=== PATIENT | male | born 1945 | race Caucasian/White ===

== ENCOUNTER 2021-04-09 18:36 | Inpatient (IN) | payer MEDICARE, SELFPAY ==
[2021-04-09] VITALS (57 sets, daily range): BP systolic 99–179; BP diastolic 69–153; PULSE 104–172; RESP 14–32; TEMP 37.6; O2SAT 60–99; BMI 18.8
--- NOTE | 2021-04-09 18:54 | ECG_ITS ---
[facility] Test Date: 2021-04-09 Pat Name: Chriss Chen Department: Room: Gender: Male Clinical Research Monitor: : 1945 Requested By: Chris Joseph Order Number: [id number] Reading MD: REYNOLD VILLATORO Measurements Intervals [place] Rate: 137 P: [place]: QRS: 57 QRSD: 84 T: 59 QT: 269 QTc: 406 Interpretive Statements ATRIAL FLUTTER/TACHYCARDIA WITH RAPID VENTRICULAR RESPONSE WITH ABERRANT CONDUCTION OR VENTRICULAR PREMATURE COMPLEXES ABNORMAL RHYTHM ECG No previous ECG available for comparison Electronically Signed On 04-09-2021 22:56:55 CDT by REYNOLD VILLATORO [id number] f
--- NOTE | 2021-04-09 18:54 | XRR_ITS ---
PROCEDURE INFORMATION: Exam: XR Chest Exam date and time: 04/09/2021 6:54 PM Age: 75 years old Clinical indication: Shortness of breath; Sternal or substernal pain; Additional info: Cp TECHNIQUE: Imaging protocol: XR of the chest. Views: 1 view. COMPARISON: No relevant prior studies available. FINDINGS: Tubes, catheters and devices: There is a right IJ port with tip in the right atrium. Lungs: The lungs are hyperinflated. There is ill-defined ground-glass opacity in the right lung base and peribronchial thickening concerning for mild pneumonitis and volume loss. Ill-defined nodular density beneath the minor fissure in the right lung measuring about 2 cm in greatest dimension is also noted and may reflect a true pulmonary nodule or more focal area of pneumonitis. Pulmonary vascularity is within normal limits. Pleural spaces: Unremarkable. No pleural effusion. No pneumothorax. Heart/Mediastinum: There is no pneumo mediastinum. Vasculature: There is a probable esophageal stent beginning at the level of the clavicular heads and continuing distally ending about 4 cm above the diaphragm. Diaphragm: There is nonspecific elevation of the right hemidiaphragm. Bones/joints: No acute abnormality. XR/XR chest 1V portable [id number] IMPRESSION: 1. There is ill-defined ground-glass opacity in the right lung base and peribronchial thickening concerning for mild pneumonitis and volume loss. 2. Ill-defined nodular density beneath the minor fissure in the right lung measuring about 2 cm in greatest dimension is also noted and may reflect a true pulmonary nodule or more focal area of pneumonitis. Chest CT may be helpful for further evaluation. Radiation Dose CTDIVOL = (mGy): DLP = (mGy-cm)
--- NOTE | 2021-04-09 18:57 | W.ED.CHESTPA ---
HPI - Chest Pain General: Chief Complaint: Upper Respiratory Infection Stated Complaint: SOB/ CP/ TACHYCARDIC Time Seen by Provider: 04/09/21 18:39 Source: patient and EMS Mode of arrival: EMS Limitations: no limitations History of Present Illness: HPI narrative: 75-year-old male has a history of A. fib states he has had a history of lung issues as well. States that over the last weeks he has been having some chest pain palpitations and shortness of breath. He does have a history of atrial fib which he takes Cardizem and warfarin for. States that tonight he started is having increasing palpitations and slight pain. Some mild shortness of breath he is not requiring any oxygen here he has had a cough he states it is chronic in nature. Denies any vomiting or diarrhea. Denies any radiation or worsening improving factors to his pain. He states he had a low-grade fever he also has a history of lung cancer in the past. Associated symptoms: Reports dyspnea and palpitations; Deny abdominal pain, fever(s), nausea or vomiting Review of Systems Const: Denies: fever(s), chills, body aches or change in appetite Eyes: Denies: blurry vision or eye discomfort ENMT: Denies: throat pain or dental pain Card: Reports: chest pain, palpitations and irregular heart rhythm Resp: Reports: dyspnea and non-productive cough GI: Denies: abdominal pain, nausea, vomiting or diarrhea : Denies: dysuria Musc: Denies: neck pain or back pain Skin/Breast: Denies: rash Neuro: Denies: headache(s) Psych: Denies: depression Levon/Lymph: Denies: easy bruising All/Imm: Denies: urticaria Physical Exam Const: COMMON NORMALS: no acute distress, patient oriented x3 and healthy appearing HENMT: COMMON NORMALS: normocephalic and atraumatic HEAD & SCALP: normocephalic and atraumatic Eye: COMMON NORMALS: Equal, round and reactive pupils present and EOMs intact bilaterally PUPIL: Yes Equal, round and reactive pupils present Neck/C-Spine: COMMON NORMALS: full ROM and supple Chest: COMMONS NORMALS: normal inspection of the chest and normal palpation of entire chest wall Resp: COMMON NORMALS: normal respiratory effort, No retractions, No use of accessory muscles and clear to auscultation bilaterally AUSCULTATION: clear to auscultation bilaterally Cardio: COMMON NORMALS: No murmurs present (Cardio) RATE: tachycardic RHYTHM: abnormal rhythm irregularly irregular GI: COMMON NORMALS: Normal to inspection, nondistended, normoactive bowel sounds present, Soft to palpation, non-tender and no masses PALPATION: Yes Soft to palpation Extremity: COMMON NORMALS: normal to inspection and full ROM Neuro: COMMON NORMALS: patient oriented x3, moves all extremities and no focal motor deficits Psych: COMMON NORMALS: mental status grossly normal, Normal thought process present and cooperative THOUGHT PROCESS: Normal thought process present Skin: COMMON NORMALS: no rashes or lesions noted and no wounds GENERAL SKIN EXAM: no rashes or lesions noted Course Vital Signs: Vital signs: Vital Signs Temperature 99.7 F H 04/09/21 18:57 Pulse Rate 118 H 04/09/21 22:15 Respiratory Rate 28 H 04/09/21 22:15 Blood Pressure 127/83 04/09/21 22:15 Pulse Oximetry 86 L 04/09/21 22:15 MDM - Chest Pain MDM Narrative: Medical decision making narrative: Patient presents here with A. fib with RVR along with a pneumonia. Patient here is improving on a Cardizem drip spoke to the hospitalist will admit to cardiac stepdown. Patient given IV antibiotics. Lab Data: Labs: Lab Results 04/09/21 04/09/21 04/09/21 19:00 19:00 19:00 WBC 8.1 10^3/uL 10^3/ uL (4.0-10.0) RBC 5.37 10^6/uL H 10 ^6/uL (4.1-5.3) Hgb 12.9 g/dL g/dL (11.7-16.6) Hct 42.1 % % (42.0-52.0) MCV 78.4 fl L fl (80-94) MCH 24.0 pg L pg (28.0-34.0) MCHC 30.6 g/dL g/dL (30.0-36.0) RDW 14.0 % % (12.1-15.1) Plt Count 449 10^3/cmm H 10 ^3/cmm (130-400) MPV 8.5 fL fL (7.4-10.4) Neut % (Auto) 80.6 % % Lymph % (Auto) 8.3 % % [place] % (Auto) 10.1 % % Eos % (Auto) 0.1 % % Baso % (Auto) 0.2 % % Neut # (Auto) 6.51 10^3/uL 10^3 /uL (1.8-7.7) Lymph # (Auto) 0.7 10^3/uL L 10^ 3/uL (0.8-4.8) [place] # (Auto) 0.8 10^3/uL 10^3/ uL (0.2-0.9) Eos # (Auto) 0.0 10^3/uL 10^3/ uL (0.0-0.8) Baso # (Auto) 0.0 10^3/uL 10^3/ uL (0.0-0.1) Nucleated RBC % (a uto) 0 % % Nucleated RBCs # 0.0 /100WBC /100W BC PT 24.60 SECONDS H S ECONDS (12.1-14.9) INR 2.17 H (0.8-1.2) Sodium 130 mmol/L L mmol /L (136-145) Potassium 4.7 mmol/L mmol/L (3.5-5.1) Chloride 90 mmol/L L mmol/ L (98-107) Carbon Dioxide 28 mmol/L mmol/L (22-29) Anion Gap 16.7 (5-19) BUN 9 mg/dL mg/dL (8-23) Creatinine 0.5 mg/dL L mg/dL (0.7-1.2) GFR Calculation Not Reportable Glucose 80 mg/dL mg/dL (65-115) Calculated Osmolal ity 268 mOsm/kg L mOs m/kg (285-295) Lactate Calcium 9.1 mg/dL mg/dL (8.5-10.5) Total Bilirubin 0.4 mg/dL mg/dL (0.15-1.2) AST 27 U/L U/L (0-40) ALT 39 U/L U/L (0-41) Alkaline Phosphata se 150 IU/L H IU/L (40-130) Troponin T Baselin e Troponin T 120 Min [place] Troponin T NT-Pro-B Natriuret Pep 1495 pg/mL H pg/m L (0-450) Total Protein 6.4 g/dL L g/dL (6.6-8.7) Albumin 3.5 g/dL g/dL (3.5-5.2) Globulin 2.9 g/dL g/dL (1.3-4.6) SARS-CoV-2 Ag (Rap id) 04/09/21 04/09/21 04/09/21 19:00 19:43 19:43 WBC RBC Hgb Hct MCV MCH MCHC RDW Plt Count MPV Neut % (Auto) Lymph % (Auto) [place] % (Auto) Eos % (Auto) Baso % (Auto) Neut # (Auto) Lymph # (Auto) [place] # (Auto) Eos # (Auto) Baso # (Auto) Nucleated RBC % (a uto) Nucleated RBCs # PT INR Sodium Potassium Chloride Carbon Dioxide Anion Gap BUN Creatinine GFR Calculation Glucose Calculated Osmolal ity Lactate 1.0 mmol/L mmol/L (0.5-2.2) Calcium Total Bilirubin AST ALT Alkaline Phosphata se Troponin T Baselin e 18 ng/L H ng/L (0-15) Troponin T 120 Min [place] Troponin T NT-Pro-B Natriuret Pep Total Protein Albumin Globulin SARS-CoV-2 Ag (Rap id) Negative (Negative) 04/09/21 21:11 WBC RBC Hgb Hct MCV MCH MCHC RDW Plt Count MPV Neut % (Auto) Lymph % (Auto) [place] % (Auto) Eos % (Auto) Baso % (Auto) Neut # (Auto) Lymph # (Auto) [place] # (Auto) Eos # (Auto) Baso # (Auto) Nucleated RBC % (a uto) Nucleated RBCs # PT INR Sodium Potassium Chloride Carbon Dioxide Anion Gap BUN Creatinine GFR Calculation Glucose Calculated Osmolal ity Lactate Calcium Total Bilirubin AST ALT Alkaline Phosphata se Troponin T Baselin e Troponin T 120 Min [place] 17.54 ng/L H ng/L (0-15) [place] Troponin T -0.46 ABS# L ABS# (0-10) NT-Pro-B Natriuret Pep Total Protein Albumin Globulin SARS-CoV-2 Ag (Rap id) Imaging Data^: CT Chest: Attestation: I personally reviewed and interpreted this imaging study as follows: Radiologist's impression: [facility] [address] [address] Scan Report Signed Patient: Chriss Chen Unit #: [id number] : 1945 Age/Sex: 75 / M ADM Date: 04/09/21 Loc: ER Room/Bed: Attending Dr: Ordering Provider/Ordering MD: Chris Joseph MD Date of Service: 04/09/21 Procedure(s): CT angio chest PE protcl [id number] Accession Number(s): [id number] Report Number: [id number] PROCEDURE INFORMATION: Exam: CTA Chest With Contrast Exam date and time: 04/09/2021 7:41 PM Age: 75 years old Clinical indication: Cough and fever and shortness of breath; Prior surgery; Surgery type: Port, aaa; Additional info: SOB TECHNIQUE: Imaging protocol: Computed tomographic angiography of the chest with contrast. 3D rendering (Not supervised by radiologist): MIP and/or 3D reconstructed images were created by the technologist. Radiation optimization: All CT scans at this facility use at least one of these dose optimization techniques: automated exposure control; mA and/or kV adjustment per patient size (includes targeted exams where dose is matched to clinical indication); or iterative reconstruction. Contrast material: OMNI 350; Contrast volume: 73 ml; Contrast route: INTRAVENOUS (IV); COMPARISON: CR (CHEST, ) 04/09/2021 7:02 PM RADIATION DOSE METRICS: Total DLP (mGy-cm): 543.82 FINDINGS: Tubes, catheters and devices: There is an esophageal stent. This portion of the mass measures 4.7 x 6.6 cm in size at the level of the distal stent. There is a right IJ port with tip in the superior vena cava. Pulmonary arteries: There is no pulmonary embolus. Aorta: There is 4.2 cm aneurysmal dilatation of the ascending thoracic aorta without dissection or mural hematoma. Trachea: Large mass extends into the right paratracheal region and is also extending into the posterior trachea measuring 3.8 x 5.9 cm. There is mild narrowing of the posterior trachea less than 20%. Lungs: Multiple tree-in-bud opacities are noted in the lungs compatible with pneumonitis. Volume loss and peribronchial thickening with patchy mucous plugging is noted in the right middle lobe and right lower lobe. Mild right basilar infiltrate versus atelectasis is noted. Pleural spaces: There is a moderate sized right pleural effusion. Heart: The heart is enlarged. There is a small pericardial fluid collection present. There is reflux of contrast into the hepatic veins compatible with probable right heart failure. Mediastinal space: The distal stent is occluded by soft tissue mass involving the distal esophagus and fundus of the stomach. There is infiltration of the esophageal mass throughout the mediastinum extending into the kiersten. Lymph nodes: There is a 1.2 cm short axis right and left hilar lymph node. Soft tissue mass versus adenopathy is also noted at the superior aspect of the stent with short segment of complete occlusion of the proximal esophagus at the top of the stent image 79. Adrenal glands: There is multilobulated benign adenomatous enlargement of the adrenal glands. Stomach and bowel: Extensive soft tissue density is noted surrounding the esophagus/esophageal stent compatible with extensive esophageal carcinoma beginning at the thoracic inlet and continuing distally to the gastroesophageal junction. The wall of the posterior fundus of the stomach measures 2.8 cm. Bones/joints: There is adenopathy versus contiguous extension of the mass into the thoracic inlet. Both lytic and sclerotic bony changes are noted compatible with metastatic disease especially at T1 and T2. No acute fracture. Soft tissues: Unremarkable. Other findings: There is fluid/secretions in the lumen of the esophageal stent. CT/CT angio chest PE protcl [id number] IMPRESSION: 1. There is no pulmonary embolus. 2. Extensive esophageal neoplasm circumferentially surrounding the entire esophageal stent with short segment occlusion of the stent proximally at the thoracic inlet. This large mass is extending into the right paratracheal soft tissues and resulting in approximately 20% narrowing of the posterior trachea. 3. Obstruction of the distal esophageal stent/gastroesophageal junction with large mass extending into the fundus of the stomach. 4. Mild tree-in-bud pneumonitis diffusely in the lungs with more focal peribronchial thickening and mucous plugging in the right middle lobe and right lower lobe that may reflect aspiration pneumonitis. There is a moderate sized right pleural effusion. Radiation Dose CTDIVOL = (mGy): DLP = 543.82 (mGy-cm) Dictated By: Alisia Prather Signed By: Alisia Prather Signed Date/Time: 04/09/212113 DD/ 40 EKG Data^: EKG 1: Attestation: I personally reviewed and interpreted this EKG as follows: EKG interpretation date: 04/09/21 EKG interpretation time: 18:48 Interpretation: atrial flutter hr [address] or t wave abnormalities qr 84 qtc 349 Critical Care Time Critical Care Time: Critical Care Time: Yes Total Critical Care Time: 35 Attestation: The high probability of a clinically significant, sudden or life threatening deterioration of the patient's [] system(s) required my full and direct attention, intervention and personal management. The critical care time is as shown. This time is in addition to time spent performing any reported procedures but includes the following: [x] Data and vital sign review and interpretation [x] Patient assessment, examination and intervention [x] Documentation [x] Medication orders and management Discharge Plan Discharge Patient Disposition: Admitted As Inpatient Admit Provider: Catarina Harley Clinical Impression: Atrial fibrillation with RVR, Pneumonia Condition: Stable Discharge Diet: Advance as tolerated Discharge Activity: Resume usual activity Coding Level of Care Code ED Orderly for Chg Fwd Exam Comprehensive
[2021-04-09] MEDS: sodium chloride 0.9% 500 ML 999 ML IV (19:08)
[2021-04-09 19:12] LABS: Basophils % 0.2 %; Eosinophils % 0.1 %; Hematocrit 42.1 % (42.0-52.0); Hemoglobin 12.9 g/dL (11.7-16.6); Lymphocytes # 0.7 10^3/uL (0.8-4.8); Lymphocytes % 8.3 %; Mean Corpuscular HGB Conc 30.6 g/dL (30.0-36.0); Mean Corpuscular Volume 78.4 fl (80-94); Mean Platelet Volume 8.5 fL (7.4-10.4); Monocytes # 0.8 10^3/uL (0.2-0.9); Monocytes % 10.1 %; Neutrophils # 6.51 10^3/uL (1.8-7.7); Neutrophils % 80.6 %; Nucleated Red Blood Cells % 0 %; Platelet Count 449 10^3/cmm (130-400); Red Blood Count 5.37 10^6/uL (4.1-5.3); White Blood Count 8.1 10^3/uL (4.0-10.0)
[2021-04-09] MEDS: acetaminophen 650 mg/20.3 mL UDC PO (19:16)
[2021-04-09 19:22] LABS: INR 2.17 (0.8-1.2)
[2021-04-09 19:38] LABS: Troponin(5th) Baseline 18 ng/L (0-15)
[2021-04-09 19:39] LABS: Alanine Aminotransferase 39 U/L (0-41); Albumin Level 3.5 g/dL (3.5-5.2); Alkaline Phosphatase 150 IU/L (40-130); Anion Gap 16.7 (5-19); Aspartate Amino Transferase 27 U/L (0-40); Blood Urea Nitrogen 9 mg/dL (8-23); Calcium 9.1 mg/dL (8.5-10.5); Carbon Dioxide 28 mmol/L (22-29); Chloride 90 mmol/L (98-107); Globulin 2.9 g/dL (1.3-4.6); Glucose 80 mg/dL (65-115); NT Pro B Type Natriuretic Pept 1495 pg/mL (0-450); Osmolality Calculated 268 mOsm/kg (285-295); Potassium 4.7 mmol/L (3.5-5.1); Sodium 130 mmol/L (136-145); Total Bilirubin 0.4 mg/dL (0.15-1.2); Total Protein 6.4 g/dL (6.6-8.7)
--- NOTE | 2021-04-09 19:41 | CTR_ITS ---
PROCEDURE INFORMATION: Exam: CTA Chest With Contrast Exam date and time: 04/09/2021 7:41 PM Age: 75 years old Clinical indication: Cough and fever and shortness of breath; Prior surgery; Surgery type: Port, aaa; Additional info: SOB TECHNIQUE: Imaging protocol: Computed tomographic angiography of the chest with contrast. 3D rendering (Not supervised by radiologist): MIP and/or 3D reconstructed images were created by the technologist. Radiation optimization: All CT scans at this facility use at least one of these dose optimization techniques: automated exposure control; mA and/or kV adjustment per patient size (includes targeted exams where dose is matched to clinical indication); or iterative reconstruction. Contrast material: OMNI 350; Contrast volume: 73 ml; Contrast route: INTRAVENOUS (IV); COMPARISON: CR (CHEST, ) 04/09/2021 7:02 PM RADIATION DOSE METRICS: Total DLP (mGy-cm): 543.82 FINDINGS: Tubes, catheters and devices: There is an esophageal stent. This portion of the mass measures 4.7 x 6.6 cm in size at the level of the distal stent. There is a right IJ port with tip in the superior vena cava. Pulmonary arteries: There is no pulmonary embolus. Aorta: There is 4.2 cm aneurysmal dilatation of the ascending thoracic aorta without dissection or mural hematoma. Trachea: Large mass extends into the right paratracheal region and is also extending into the posterior trachea measuring 3.8 x 5.9 cm. There is mild narrowing of the posterior trachea less than 20%. Lungs: Multiple tree-in-bud opacities are noted in the lungs compatible with pneumonitis. Volume loss and peribronchial thickening with patchy mucous plugging is noted in the right middle lobe and right lower lobe. Mild right basilar infiltrate versus atelectasis is noted. Pleural spaces: There is a moderate sized right pleural effusion. Heart: The heart is enlarged. There is a small pericardial fluid collection present. There is reflux of contrast into the hepatic veins compatible with probable right heart failure. Mediastinal space: The distal stent is occluded by soft tissue mass involving the distal esophagus and fundus of the stomach. There is infiltration of the esophageal mass throughout the mediastinum extending into the kiersten. Lymph nodes: There is a 1.2 cm short axis right and left hilar lymph node. Soft tissue mass versus adenopathy is also noted at the superior aspect of the stent with short segment of complete occlusion of the proximal esophagus at the top of the stent image 79. Adrenal glands: There is multilobulated benign adenomatous enlargement of the adrenal glands. Stomach and bowel: Extensive soft tissue density is noted surrounding the esophagus/esophageal stent compatible with extensive esophageal carcinoma beginning at the thoracic inlet and continuing distally to the gastroesophageal junction. The wall of the posterior fundus of the stomach measures 2.8 cm. Bones/joints: There is adenopathy versus contiguous extension of the mass into the thoracic inlet. Both lytic and sclerotic bony changes are noted compatible with metastatic disease especially at T1 and T2. No acute fracture. Soft tissues: Unremarkable. Other findings: There is fluid/secretions in the lumen of the esophageal stent. CT/CT angio chest PE protcl [id number] IMPRESSION: 1. There is no pulmonary embolus. 2. Extensive esophageal neoplasm circumferentially surrounding the entire esophageal stent with short segment occlusion of the stent proximally at the thoracic inlet. This large mass is extending into the right paratracheal soft tissues and resulting in approximately 20% narrowing of the posterior trachea. 3. Obstruction of the distal esophageal stent/gastroesophageal junction with large mass extending into the fundus of the stomach. 4. Mild tree-in-bud pneumonitis diffusely in the lungs with more focal peribronchial thickening and mucous plugging in the right middle lobe and right lower lobe that may reflect aspiration pneumonitis. There is a moderate sized right pleural effusion. Radiation Dose CTDIVOL = (mGy): DLP = 543.82 (mGy-cm)
[2021-04-09 20:12] LABS: SARS Covid-2 Antigen Negative (Negative)
[2021-04-09] MEDS: iohexol 350 mg/mL 100 mL Btl IV (20:18)
[2021-04-09] MEDS: cefTRIAXone 1,000 MG in sodium chloride 0.9% (plus) 50 ML 100 MG IV (22:05)
[2021-04-09] MEDS: sodium chloride 0.9% 1,000 ML 999 ML IV (22:10)
[2021-04-09 22:11] LABS: Troponin 5 2HR 17.54 ng/L (0-15); Troponin 5 2HR Delta -0.46 ABS# (0-10)
[2021-04-10] VITALS (18 sets, daily range): BP systolic 109–141; BP diastolic 66–99; PULSE 74–124; RESP 16–28; TEMP 36.6–36.7; O2SAT 94–100
[2021-04-10] MEDS: azithromycin 500 MG in sodium chloride 0.9% 250 ML 250 MG IV
--- NOTE | 2021-04-10 00:54 | ECG_ITS ---
[facility] Test Date: 2021-04-10 Pat Name: Chriss Cehn Department: Room: 112 Gender: Male Checker/Stocker: : 1945 Requested By: Chris Joseph Order Number: [id number] Reading MD: REYNOLD VILLATORO Measurements Intervals [place] Rate: 103 P: [place]: QRS: 64 QRSD: 94 T: 75 QT: 328 QTc: 431 Interpretive Statements ATRIAL FIBRILLATION WITH RAPID VENTRICULAR RESPONSE ABNORMAL RHYTHM ECG Compared to ECG 04/09/2021 18:48:22 Atrial flutter no longer present Ventricular premature complex(es) no longer present Electronically Signed On 04-11-2021 0:12:39 CDT by REYNOLD VILLATORO [email or web address].[employer]/store/OM/[id number]
--- NOTE | 2021-04-10 01:05 | PC.NURSE ---
Addendum entered by Shilpa Clements RN 04/10/21 02:07: Ordered to try pills crushed in applesauce. Original Note: Patient says he has had a sore throat and because of that has had difficulty swallowing. He hasn't taken his PO medications at home in 2 days because of it. He takes PO Warfarin and PO Cardizem at home. Dr. Harley notified.
--- NOTE | 2021-04-10 03:24 | PC.NURSE ---
Dr. Harley notified of cardizem running at 15 and heart rate maintaining 110s-120s.
[2021-04-10] MEDS: metoprolol tartrate 1 mg/1 mL SDV 5 mL 5 MG IVP ×2 (04:28→08:10)
[2021-04-10] MEDS: metroNIDAZOLE IV 500 MG/100 ML PREMIX 100 MG IV ×2 (04:28→15:14)
[2021-04-10] MEDS: enoxaparin 40 mg/0.4 mL Syringe SUBCUT (04:28)
[2021-04-10] MEDS: famotidine 20 mg/2 mL INJ IVP ×2 (04:28→15:14)
--- NOTE | 2021-04-10 05:30 | PC.NURSE ---
Ordered to not give patient any PO medications.
--- NOTE | 2021-04-10 07:17 | PM.HP ---
Providers/Chief Complaint Admitting Physician: Catarina Harley MD Chief Complaint: SOB/ CP/ TACHYCARDIC History of Present Illness Chriss Chen is a 75 year old male with a past medical history of esophageal cancer, status post chemoradiation in 2019, he is to follow-up with Dr. Balderrama at [facility] until August 2020, then discontinued follow-up as his truck broke down and states he had no means of getting to [place]. Additionally carries a history of atrial fibrillation for which he is currently on Cardizem, warfarin. He presents today with c/o central chest pain, progressive dysphagia and food sticking in upper chest which he states that has been going on for a week. Currently only able to swallow liquids. I suspect this may have been going on much longer given his overall deconditioned state. He has not been able to take any of his medications as pills are hard to swallow. He has reported more episodes of coughing with attempted swallow. On evaluation he was found to be in A. fib with RVR with heart rate in the 160s upon admission, started on Cardizem drip, currently running at 15 mg an hour. Heart rate is currently better controlled at [address]pm[address] without acute [address]-T wave changes. Serial troponin delta is negative at 2 and 6-hour. CTA of the chest shows extensive esophageal neoplasm affecting both the upper and lower esophagus, old esophageal stent in place, and signs of pneumonitis. He also has a large right-sided pleural effusion. He denies any fever. Not vaccinated for COVID-19. He appears to have poor social support, does not have any family around, lives by himself, has been eating frozen dinners only for the past 6 months or so. He is noted to have desquamating shallow ulceration on his tongue, states this is not painful. Review of Systems General: Reports: 10 or more systems reviewed and unremarkable except in HPI and below Const: Denies: fever(s), chills or body aches Eyes: Denies: change in vision, blurry vision or photophobia ENMT: Reports: throat pain and odynophagia; Denies: enlarged tonsils or nasal congestion Card: Reports: chest pain; Denies: palpitations, irregular heart rhythm, edema, swelling of feet/ankles, lightheadedness, pre-syncope, dyspnea on exertion or orthopnea Resp: Denies: dyspnea, productive cough, non-productive cough, wheezing, stridor, pain on inspiration, change in phlegm color, hemoptysis or chest congestion GI: Denies: abdominal pain, nausea, vomiting, hematemesis, coffee ground emesis, dysphagia, heartburn, diarrhea, constipation, GI cramping, change in stool character, hematochezia or melena : Denies: flank pain, dysuria, urinary frequency, urinary urgency, urinary hesitancy or hematuria Musc: Denies: neck pain, back pain, extremity pain, joint swelling, joint warmth or deformity Neuro: Denies: headache(s), numbness in extremities, weakness in extremities, sensory changes, difficulty walking, frequent falls, dizziness, vertigo, behavioral changes, Slurred speech present or seizure-like activity Psych: Denies: anxiety, depression, suicidal ideation or homicidal ideation Endo: Denies: polyuria, polydipsia, tired all the time, cold intolerance or hot flashes Levon/Lymph: Denies: easy bruising or easy bleeding Medications/Allergies Home Medications Medication Instructions Recorded Confirmed Last Taken Type baclofen 10 mg PO BID PRN 04/09/21 04/10/21 Unknown History diltiazem HCl 240 mg PO DAILY 04/09/21 04/10/21 2 Days Ago History ~04/07/21 omeprazole 20 mg PO DAILY 04/09/21 04/10/21 2 Days Ago History ~04/07/21 warfarin 6 mg PO DAILY 04/09/21 04/10/21 2 Days Ago History ~04/07/21 iron 325 mg PO DAILY 04/10/21 04/10/21 2 Days Ago History ~04/08/21 ondansetron HCl [Zofran] 4 mg PO Q6H PRN 04/10/21 04/10/21 Unknown History Allergies Allergy/AdvReac Type Severity Reaction Status Date / Time Penicillins Allergy ALGY-Rash Verified 04/09/21 18:57 PFSH Acute PFSH: Medical History (Updated 04/10/21 @ 07:28 by Catarina Harley MD) Atrial fibrillation with RVR Chronic anticoagulation Esophageal cancer Migrated esophageal stent Vitals/I&O/Wt Last Vital Signs Temp 98 F 04/10/21 04:00 Pulse 83 04/10/21 05:31 Resp 28 H 04/10/21 04:00 BP 128/87 04/10/21 05:31 Pulse Ox 94 04/10/21 04:00 04/09/21 04/10/21 04/10/21 22:59 06:59 14:59 Intake Total 2280.167 / 2280.167 92.75 / 92.75 Output Total 675 / 675 Balance 1605.167 / 1605.167 92.75 / 92.75 Weight last 48 hrs Weight 55.157 kg Weight 56.245 kg Physical Exam Narrative: EXAM NARRATIVE: General: No acute distress, AO x3, elderly chronically frail appearing man HEENT: PERRLA, pupils bilaterally equal and reactive, pallors not present Chest: Coarse crackles to auscultation right infra axillary and mammary areas CVS: S1-S2 regular, no murmurs, no tachycardia, no gallops, no rubs Abdomen: Soft, nontender, no organomegaly, bowel sounds present Neuro: No focal deficits, no facial deformity, AO x3, power 5/5 in all limbs Extremities: No swelling edema cyanosis or clubbing Data : 04/09/21 19:00 04/09/21 19:00 Micro: Microbiology 04/09/21 19:30 Blood Culture - Preliminary Blood SPECIMEN COLLECTED 04/09/21 19:43 Blood Culture - Preliminary Blood SPECIMEN COLLECTED Attestation for Other Data: I personally reviewed and interpreted the following: Other data: Laboratory Results WBC 8.1 10^3/uL (4.0-10.0) 04/09/21 19:00 RBC 5.37 10^6/uL (4.1-5.3) H 04/09/21 19:00 Hgb 12.9 g/dL (11.7-16.6) 04/09/21 19:00 Hct 42.1 % (42.0-52.0) 04/09/21 19:00 MCV 78.4 fl (80-94) L 04/09/21 19:00 MCH 24.0 pg (28.0-34.0) L 04/09/21 19:00 MCHC 30.6 g/dL (30.0-36.0) 04/09/21 19:00 RDW 14.0 % (12.1-15.1) 04/09/21 19:00 Plt Count 449 10^3/cmm (130-400) H 04/09/21 19:00 MPV 8.5 fL (7.4-10.4) 04/09/21 19:00 Neut % (Auto) 80.6 % 04/09/21 19:00 Lymph % (Auto) 8.3 % 04/09/21 19:00 Bland % (Auto) 10.1 % 04/09/21 19:00 Eos % (Auto) 0.1 % 04/09/21 19:00 Baso % (Auto) 0.2 % 04/09/21 19:00 Neut # (Auto) 6.51 10^3/uL (1.8-7.7) 04/09/21 19:00 Lymph # (Auto) 0.7 10^3/uL (0.8-4.8) L 04/09/21 19:00 Bland # (Auto) 0.8 10^3/uL (0.2-0.9) 04/09/21 19:00 Eos # (Auto) 0.0 10^3/uL (0.0-0.8) 04/09/21 19:00 Baso # (Auto) 0.0 10^3/uL (0.0-0.1) 04/09/21 19:00 Nucleated RBC % (auto) 0 % 04/09/21 19:00 Nucleated RBCs # 0.0 /100WBC 04/09/21 19:00 PT 24.60 SECONDS (12.1-14.9) H 04/09/21 19:00 INR 2.17 (0.8-1.2) H 04/09/21 19:00 Sodium 130 mmol/L (136-145) L 04/09/21 19:00 Potassium 4.7 mmol/L (3.5-5.1) 04/09/21 19:00 Chloride 90 mmol/L (98-107) L 04/09/21 19:00 Carbon Dioxide 28 mmol/L (22-29) 04/09/21 19:00 Anion Gap 16.7 (5-19) 04/09/21 19:00 BUN 9 mg/dL (8-23) 04/09/21 19:00 Creatinine 0.5 mg/dL (0.7-1.2) L 04/09/21 19:00 GFR Calculation Not Reportable 04/09/21 19:00 Glucose 80 mg/dL (65-115) 04/09/21 19:00 Calculated Osmolality 268 mOsm/kg (285-295) L 04/09/21 19:00 Lactate 1.0 mmol/L (0.5-2.2) 04/09/21 19:43 Calcium 9.1 mg/dL (8.5-10.5) 04/09/21 19:00 Total Bilirubin 0.4 mg/dL (0.15-1.2) 04/09/21 19:00 AST 27 U/L (0-40) 04/09/21 19:00 ALT 39 U/L (0-41) 04/09/21 19:00 Alkaline Phosphatase 150 IU/L (40-130) H 04/09/21 19:00 Troponin T Baseline 18 ng/L (0-15) H 04/09/21 19:00 Troponin T 120 Minute 17.54 ng/L (0-15) H 04/09/21 21:11 Delta Troponin T -0.46 ABS# (0-10) L 04/09/21 21:11 Troponin T Hi Sens 6Hr 17.60 ng/L (0-15) H 04/10/21 01:01 Troponin T Hi Sens 6Hr Delta -0.40 ng/L (0-12) L 04/10/21 01:01 NT-Pro-B Natriuret Pep 1495 pg/mL (0-450) H 04/09/21 19:00 Total Protein 6.4 g/dL (6.6-8.7) L 04/09/21 19:00 Albumin 3.5 g/dL (3.5-5.2) 04/09/21 19:00 Globulin 2.9 g/dL (1.3-4.6) 04/09/21 19:00 SARS-CoV-2 Ag (Rapid) Negative (Negative) 04/09/21 19:43 Impressions Chest X-Ray 04/09/21 18:54 IMPRESSION: 1. There is ill-defined ground-glass opacity in the right lung base and peribronchial thickening concerning for mild pneumonitis and volume loss. 2. Ill-defined nodular density beneath the minor fissure in the right lung measuring about 2 cm in greatest dimension is also noted and may reflect a true pulmonary nodule or more focal area of pneumonitis. Chest CT may be helpful for further evaluation. Radiation Dose CTDIVOL = (mGy): DLP = (mGy-cm) Chest CTA 04/09/21 19:41 IMPRESSION: 1. There is no pulmonary embolus. 2. Extensive esophageal neoplasm circumferentially surrounding the entire esophageal stent with short segment occlusion of the stent proximally at the thoracic inlet. This large mass is extending into the right paratracheal soft tissues and resulting in approximately 20% narrowing of the posterior trachea. 3. Obstruction of the distal esophageal stent/gastroesophageal junction with large mass extending into the fundus of the stomach. 4. Mild tree-in-bud pneumonitis diffusely in the lungs with more focal peribronchial thickening and mucous plugging in the right middle lobe and right lower lobe that may reflect aspiration pneumonitis. There is a moderate sized right pleural effusion. Radiation Dose CTDIVOL = (mGy): DLP = 543.82 (mGy-cm) A&P Assessment and plan (1) Atrial fibrillation with RVR: Initially heart rate 160s upon presentation, started on Cardizem drip, currently going at 15 mg/h, heart rate better controlled between 110 to 120 bpm. Additionally added 5 mg IV metoprolol every 4 hours and attempt to titrate down Cardizem drip. Patient currently unable to swallow any pills, will obtain swallow eval prior to attempting pur?ed or dysphagia diet to ensure safety. INR currently adequate at 2.17, however discontinued anticoagulation due to high risk of bleeding from extensive esophageal neoplasm. Discussed with patient and he feels comfortable with this approach. Status: Acute (2) Pneumonia: Most likely to be aspiration pneumonia given patient's history and findings on CAT scan. Start treatment with ceftriaxone 1 g IV every 24 and Flagyl 500 mg IV every 12 hours. Obtain sputum culture and Gram stain Moderate-sized right pleural effusion which may be parapneumonic. Status: Acute (3) Esophageal cancer: History of esophageal cancer, treated with chemoradiation in 2019. Details currently not available. Followed with Dr. Wallace ZIMMER from [facility]. Has not followed up since August of this year. CTA today and notes extensive esophageal neoplasm surrounding the known esophageal stent and occlusion of the stent proximally at the inlet, correlating with patient's symptoms of dysphagia. There is paratracheal extension into the soft tissues and also obstruction of the distal esophageal stent with large mass extending into the fundus. Extensively discussed with the patient his goals of care. Initially patient had stated that he would like to decide whether he would like to proceed with a more hospice/comfort care approach versus seek palliative treatment. Eventually he decided this morning that he would like to go for palliative treatment. A palliative approach at this time would most likely involve fulguration of the mass and possible esophageal restenting, and or placement of feeding PEG/PEJ as patient currently unable to swallow anything except liquids. This is only likely to increase without treatment. Call placed to [facility] as we are unable to perform the above procedure at [facility], there are no current beds, with been advised to try again later. I have discussed with the patient that this may require a higher level of care, perhaps even port hope. Status: Acute Additional A&P Information Desquamating shallow ulcerations over tongue: Suspect that this may be related to multivitamin deficiencies given that patient reports arriving on frozen dinners for the past 6 months. Check B12 and folate level. States these are not currently painful. Magic mouthwash if patient passes swallow eval to safely take some medications and liquids. DVT prophylaxis: Holding for now given high risk of bleeding from esophageal malignancy DNR/DNI Attestations Medical Necessity Statement*: Greater than 2 midnight admission is anticipated for above defined care. Coding Level of Care Code Acute Data Analytics Developer for Emili Rodriguez Diagnoses Atrial fibrillation with RVR I48.91 Pneumonia J18.9 Esophageal cancer C15.9
[2021-04-10 08:21] LABS: Vitamin B12 535 pg/mL (232-1245)
[2021-04-10 08:22] LABS: Folate Level 6.6 ng/mL (4.5-32.2)
--- NOTE | 2021-04-10 09:22 | PC.NURSE ---
0700 Report received, assessment completed. AAOx4, makes all needs known. VSS. Remains in afib with rates in low 100's. Cardizem gtt infusing per orders at 15mg/h. Pt unable to swallow meds d/t esophageal mass. Dr. Rosenbaum at bedside this AM discussing plan of care with pt. Will monitor. 0900 Pt on wait list for [facility] in [place], they will call qshift to update status.
--- NOTE | 2021-04-10 09:32 | PC.CHAP ---
Pastoral Care Encounter/Spiritual Assessment Type of Contact [] Declined accordion tuner visit [] Patient/Family/Request visit [] Outpatient visit [] Follow-up visit [] Physician referral [] Code/Alert [x] Routine visit [] Staff referral [] Actively dying [] Patient sleeping [] Family support [] [] Out of room [] Palliative care [] [] Receiving care in room [] Pre-surgical visit [] Trauma [] Long length of stay [] ICU visit [] Other: Relational/Emotional Strength [] Patient feels connected with others/family/visitors/staff [] Distress [] Loneliness/isolation [] Abandonment Spirituality of Patient [] Person of Theresa [] Attends Amish of their Theresa [] Believes in Prayer [] Reads Bible or Confucianist materials [] There are Spiritual issues to be addressed Finisher Denture Interventions [x] Prayer [x] Active listening [x] Non-anxious presence [x] Spiritual/emotional support [] Crisis/trauma care [] Spiritual counseling [] Bereavement support [] Provided bereavement packet [] Provided Bible/devotional materials [] Provided toy/stuffed animal, coloring book to patient or family member [] Provided Communion [] Anointing/[place] [] Salvation [x] Completed spiritual assessment [] Other: Impact on Illness or Injury [] Angry [] Fearful [] Anxious [] Often cries [] Exhaustion [] Unable to work [] Unable to attend latter day [] Unable to walk/stand [] Unable to read [] Unable to drive [] Unable to eat/drink [] Unable to sleep [] Unable to be with family [] Patient intubated [] Other: Summary patient tired.. no one at home- no pet.. asked what he does to keep busy , nothing Time spent with patient 5 min
--- NOTE | 2021-04-10 09:42 | P.PN_ITS ---
Subjective Subjective: Interval history: History and physical reviewed. Patient reports he has been spitting up quite a bit of sputum. It is not for sure that this is not coming from the esophagus. He denies any shortness of breath. Medications: Reviewed: Yes Vitals/I&O/Wt Last Vital Signs Temp 98.1 F 04/10/21 08:00 Pulse 89 04/10/21 08:00 Resp 20 H 04/10/21 08:00 BP 118/83 04/10/21 08:00 Pulse Ox 100 04/10/21 08:00 04/09/21 04/10/21 04/10/21 22:59 06:59 14:59 Intake Total 2280.167 / 2280.167 92.75 / 92.75 Output Total 675 / 675 225 / 225 Balance 1605.167 / 1605.167 -132.25 / -132.25 Weight last 48 hrs Weight 55.157 kg Weight 56.245 kg Physical Exam Narrative: EXAM NARRATIVE: No distress. Brownish liquid, fair quantity, in basin by his bed that he reports he is spitting up. Neck supple Cardiovascular irregular, irregular with controlled rate Lungs diminished breath sounds with coarse breath sounds at the bases Abdomen is soft, positive bowel sounds Extremities no cyanosis clubbing or edema Data : 04/09/21 19:00 04/09/21 19:00 Micro: Microbiology 04/09/21 19:30 Blood Culture - Preliminary Blood SPECIMEN COLLECTED 04/09/21 19:43 Blood Culture - Preliminary Blood SPECIMEN COLLECTED A&P Assessment and plan (1) Atrial fibrillation with RVR: Initially heart rate 160s upon presentation, started on Cardizem drip, currently going at 15 mg/h Continue metoprolol 5 mg every 4 hours and attempt to titrate down Cardizem drip. Patient currently unable to swallow any pills, will obtain swallow eval prior to attempting pur?ed or dysphagia diet to ensure safety. INR currently adequate at 2.17, however discontinued anticoagulation due to high risk of bleeding from extensive esophageal neoplasm. Discussed with patient and he feels comfortable with this approach. Repeat INR tomorrow Status: Acute (2) Pneumonia: Most likely to be aspiration pneumonia given patient's history and finding s on CT scan. Start treatment with ceftriaxone 1 g IV every 24 and Flagyl 500 mg IV every 12 hours. Await sputum culture and Gram stain Moderate-sized right pleural effusion which may be parapneumonic. Unable to safely undergo thoracentesis currently until INR less than 1.6. Repeat INR tomorrow. Status: Acute (3) Esophageal cancer: History of esophageal cancer, treated with chemoradiation in 2019. Details currently not available. Followed at [facility]. Has not followed up since August of this year. CTA today and notes extensive esophageal neoplasm surrounding the known esophageal stent and occlusion of the stent proximally at the inlet, correlating with patient's symptoms of dysphagia. There is paratracheal extension into the soft tissues and also obstruction of the distal esophageal stent with large mass extending into the fundus. Extensively discussed with the patient his goals of care. Initially patient had stated that he would like to decide whether he would like to proceed with a more hospice/comfort care approach versus seek palliative treatment. Eventually he decided that he would like to go for palliative treatment. A palliative approach at this time would most likely involve fulguration of the mass and possible esophageal restenting, and or placement of feeding PEG/PEJ as patient currently unable to swallow anything except liquids. This is only likely to increase without treatment. Patient would like transfer to [facility], [facility] system and consideration of this. Put on wait list [facility]. I will continue to try [facility] intermittently as they have no available beds currently. Continue hydration Status: Acute Additional A&P Information Desquamating shallow ulcerations over tongue. B12 and folate levels were checked and normal. States these are not currently painful. Magic mouthwash if patient passes swallow eval to safely take some medications and liquids. DVT prophylaxis: Holding for now given high risk of bleeding from esophageal malignancy DNR/DNI Attestations Medical Necessity Statement*: Needs continued hospitalization to address occluded esophageal stent in this patient with esophageal malignancy causing inability to take p.o. and resulting in atrial fibrillation with rapid ventricular rate. Coding Level of Care Code Acute Resource Engineer for [employer] Diagnoses Atrial fibrillation with RVR I48.91 Pneumonia J18.9 Esophageal cancer C15.9
[2021-04-10] MEDS: sodium chloride 0.9% 1,000 ML 75 ML IV (10:08)
--- NOTE | 2021-04-10 14:28 | PC.NURSE ---
Cardizem titrated to 10mg/hr per orders. Remains in afib with HR's in the 70's and 80's. Will monitor.
--- NOTE | 2021-04-10 16:04 | PC.NUTR ---
Nutritional assessment completed for low BMI. Recommend advance diet according to [facility] recommendations when available. Pt agreeable to Ensure Plus supplements (any flavor) with meals. States prefers liquids/soft foods due to swallowing difficulty. Notified dietary staff--will provide preferences as appropriate pending [facility] evaluation. See full RD assessment for further details.
--- NOTE | 2021-04-10 16:25 | PC.NURSE ---
O2 removed. O2 sat 99% on RA. Will monitor.
--- NOTE | 2021-04-10 16:41 | PM.TDS ---
Transfer Summary Providers Date of Admission: 04/09/21 21:23 Date of Discharge: 04/10/21 Attending Provider at Admission: Catarina Harley MD Attending Provider at Transfer: Farhat Rosenbaum MD Anticipated Date of Transfer: Anticipated date of transfer: 04/10/21 Receiving Facility & Provider: Receiving Provider: [] Receiving facility: [] Diagnoses at Discharge Discharge Diagnosis (1) Atrial fibrillation with RVR: Status: Acute (2) Pneumonia: Status: Acute (3) Esophageal cancer: Status: Acute Reason for Visit Reason for Visit: SOB/ CP/ TACHYCARDIC Hospital Course Hospital Course Chriss is a 75-year-old white male with history of esophageal cancer treated with chemoradiation earlier this year as well as esophageal stent placement who presented to the hospital with progressive dysphagia for months culminating in the last 2 days with difficulty taking any solids, and inability to take any pills. He had reported he could still take a little bit of liquids. He was spitting up quite a bit, and found to be in atrial fibrillation with rapid ventricular rate in the emergency department. He was placed on a Cardizem drip. Coumadin he was on secondary to atrial fibrillation, flutter was discontinued. IV metoprolol was given intermittently. He was given IV antibiotics for pneumonia also found on admission. Right pleural effusion, moderate was also noted. With these interventions he appeared very stable with a controlled heart rate, only required 2 L of oxygen, did not appear in any respiratory distress. CTA performed on admission demonstrated significant growth of esophageal tumor with stent occlusion proximally at the thoracic inlet. Patient requested consideration of transfer to [facility] to see if another stent could be placed, debulking of tumor, or any reasonable procedure to allow him to continue to take p.o. I contacted [facility] and they graciously accepted the patient on April 10 under the care of Dr. Choudhury. I believe him stable for transfer at this time. Physical Exam Narrative: EXAM NARRATIVE: General exam no distress Neck is supple Cardiovascular irregular, irregular Lungs clear but with diminished breath sounds at the bases, particularly right Abdomen is soft with positive bowel sounds Extremities no cyanosis clubbing or edema TS Data Data Completed and Pending: Completed Studies During Hospitalization Category Date Time Status CT angio chest PE protcl [id number] Urge nt Cat Scan 04/09/21 19:41 Completed XR chest 1V marion ble [id number] Stat Exams 04/09/21 18:54 Completed Pending at discharge Category Date Time Status Blood Culture Sta t Lab 04/09/21 19:30 Results Complete Blood Co unt w/Auto AM LABS Lab 04/11/21 04:00 Ordered Comprehensive Met abolic Panel AM LA BS Lab 04/11/21 04:00 Ordered Prothrombin Time INR AM LABS Lab 04/11/21 04:00 Ordered Sputum Culture an d Gram Stain Routi ne Lab 04/10/21 10:45 Received Labs from last 24 hours 04/10/21 04/09/21 04/09/21 01:01 21:11 19:43 WBC RBC Hgb Hct MCV MCH MCHC RDW Plt Count MPV Neut % (Auto) Lymph % (Auto) [place] % (Auto) Eos % (Auto) Baso % (Auto) Neut # (Auto) Lymph # (Auto) [place] # (Auto) Eos # (Auto) Baso # (Auto) Nucleated RBC % (a uto) Nucleated RBCs # PT INR Sodium Potassium Chloride Carbon Dioxide Anion Gap BUN Creatinine GFR Calculation Glucose Calculated Osmolal ity Lactate Calcium Total Bilirubin AST ALT Alkaline Phosphata se Troponin T Baselin e Troponin T 120 Min keshia 17.54 H Delta Troponin T -0.46 L Troponin T Hi Sens 6Hr 17.60 H Troponin T Hi Sens 6Hr Delta -0.40 L NT-Pro-B Natriuret Pep Total Protein Albumin Globulin Vitamin B12 Folate SARS-CoV-2 Ag (Rap id) Negative 04/09/21 04/09/21 04/09/21 19:43 19:00 19:00 WBC RBC Hgb Hct MCV MCH MCHC RDW Plt Count MPV Neut % (Auto) Lymph % (Auto) [place] % (Auto) Eos % (Auto) Baso % (Auto) Neut # (Auto) Lymph # (Auto) [place] # (Auto) Eos # (Auto) Baso # (Auto) Nucleated RBC % (a uto) Nucleated RBCs # PT INR Sodium Potassium Chloride Carbon Dioxide Anion Gap BUN Creatinine GFR Calculation Glucose Calculated Osmolal ity Lactate 1.0 Calcium Total Bilirubin AST ALT Alkaline Phosphata se Troponin T Baselin e Troponin T 120 Min [place] Delta Troponin T Troponin T Hi Sens 6Hr Troponin T Hi Sens 6Hr Delta NT-Pro-B Natriuret Pep Total Protein Albumin Globulin Vitamin B12 535 Folate 6.6 SARS-CoV-2 Ag (Rap id) 04/09/21 04/09/21 04/09/21 19:00 19:00 19:00 WBC RBC Hgb Hct MCV MCH MCHC RDW Plt Count MPV Neut % (Auto) Lymph % (Auto) [place] % (Auto) Eos % (Auto) Baso % (Auto) Neut # (Auto) Lymph # (Auto) [place] # (Auto) Eos # (Auto) Baso # (Auto) Nucleated RBC % (a uto) Nucleated RBCs # PT 24.60 H INR 2.17 H Sodium 130 L Potassium 4.7 Chloride 90 L Carbon Dioxide 28 Anion Gap 16.7 BUN 9 Creatinine 0.5 L GFR Calculation Not Reportable Glucose 80 Calculated Osmolal ity 268 L Lactate Calcium 9.1 Total Bilirubin 0.4 AST 27 ALT 39 Alkaline Phosphata se 150 H Troponin T Baselin e 18 H Troponin T 120 Min [place] Delta Troponin T Troponin T Hi Sens 6Hr Troponin T Hi Sens 6Hr Delta NT-Pro-B Natriuret Pep 1495 H Total Protein 6.4 L Albumin 3.5 Globulin 2.9 Vitamin B12 Folate SARS-CoV-2 Ag (Rap id) 04/09/21 19:00 WBC 8.1 RBC 5.37 H Hgb 12.9 Hct 42.1 MCV 78.4 L MCH 24.0 L MCHC 30.6 RDW 14.0 Plt Count 449 H MPV 8.5 Neut % (Auto) 80.6 Lymph % (Auto) 8.3 [place] % (Auto) 10.1 Eos % (Auto) 0.1 Baso % (Auto) 0.2 Neut # (Auto) 6.51 Lymph # (Auto) 0.7 L [place] # (Auto) 0.8 Eos # (Auto) 0.0 Baso # (Auto) 0.0 Nucleated RBC % (a uto) 0 Nucleated RBCs # 0.0 PT INR Sodium Potassium Chloride Carbon Dioxide Anion Gap BUN Creatinine GFR Calculation Glucose Calculated Osmolal ity Lactate Calcium Total Bilirubin AST ALT Alkaline Phosphata se Troponin T Baselin e Troponin T 120 Min [place] Delta Troponin T Troponin T Hi Sens 6Hr Troponin T Hi Sens 6Hr Delta NT-Pro-B Natriuret Pep Total Protein Albumin Globulin Vitamin B12 Folate SARS-CoV-2 Ag (Rap id) Vitals: Last Vital Signs Temp 98.1 F 04/10/21 16:00 Pulse 90 04/10/21 16:00 Resp 16 04/10/21 16:00 BP 120/81 04/10/21 16:00 Pulse Ox 100 04/10/21 16:00 TS Medications Medications Home Medications baclofen 10 mg PO BID PRN 04/09/21 [History Confirmed 04/10/21] diltiazem HCl 240 mg PO DAILY 04/09/21 [History Confirmed 04/10/21] omeprazole 20 mg PO DAILY 04/09/21 [History Confirmed 04/10/21] warfarin 6 mg PO DAILY 04/09/21 [History Confirmed 04/10/21] iron 325 mg PO DAILY 04/10/21 [History Confirmed 04/10/21] ondansetron HCl [Zofran] 4 mg PO Q6H PRN 04/10/21 [History Confirmed 04/10/21] Active Medications Enoxaparin Sodium (Enoxaparin 40 Mg/0.4 Ml Syringe) 40 mg SUBCUT Q24H ELVIN Last Admin: 04/10/21 04:28 Dose: 40 mg Documented by: Famotidine (Famotidine 20 Mg/2 Ml Inj) 20 mg IVP Q12H ELVIN Last Admin: 04/10/21 15:14 Dose: 20 mg Documented by: Diltiazem HCl 125 mg/ Sodium (Chloride) 125 mls @ 10 mls/hr IV .[id number] ELVIN Last Admin: 04/10/21 15:33 Dose: 10 mg/hr, 10 mls/hr Documented by: Ceftriaxone Sodium 1,000 mg/ (Sodium Chloride) 50 mls @ 100 mls/hr IV Q24H ELVIN; Protocol Metronidazole (Flagyl Iv) 500 mg in 100 mls @ 100 mls/hr IV Q12H ELVIN; Protocol Last Infusion: 04/10/21 16:19 Dose: Infused Documented by: Sodium Chloride (Sodium Chloride 0.9%) 1,000 mls @ 75 mls/hr IV .[id number] ELVIN Last Admin: 04/10/21 10:08 Dose: 75 mls/hr Documented by: Metoprolol Tartrate (Metoprolol Tartrate 1 Mg/1 Ml Sdv 5 Ml) 5 mg IVP Q4H ELVIN Last Admin: 04/10/21 15:14 Dose: Not Given Documented by: Morphine Sulfate (Morphine 4 Mg/Ml Sdv 1 Ml) 2 mg IVP Q4H PRN PRN Reason: SEVERE PAIN Naloxone HCl (Naloxone 0.4 Mg/Ml Sdv) 0.1 mg IVP Q2M PRN PRN Reason: OPIATERV Ondansetron HCl (Ondansetron 2 Mg/Ml Sdv 2 Ml) 4 mg IVP Q8H PRN PRN Reason: vomiting, or N/V if npo Discharge Plan Discharge Patient Disposition: Xfer Short-Term Hosp Condition: Stable Prescriptions: No Action omeprazole 20 mg capsule,delayed release(DR/EC) 20 mg PO DAILY RF: 0 diltiazem HCl 240 mg capsule,extended release 24hr 240 mg PO DAILY RF: 0 baclofen 10 mg tablet 10 mg PO BID PRN (Reason: Pain) RF: 0 warfarin 6 mg tablet 6 mg PO DAILY RF: 0 Zofran 4 mg Tablet 4 mg PO Q6H PRN (Reason: Nausea) RF: 0 iron 325 mg (65 mg iron) Tablet 325 mg PO DAILY RF: 0 Discharge Orders: Transfer Out of Facility (Order); Ordered 04/10/21 Ordered By: Farhat Rosenbaum Transfer Attestations Time Spent in Transfer Care*: greater than 30 min Status at Transfer: Cognitive status at transfer: cognitively intact, Behavioral status at transfer: cooperative, Functional status at transfer: independent ambulation Quality Metrics Clinical Quality Measures: During this hospital stay, did patient experience: None Coding Level of Care Code Acute Splitter Tender for Emili Fwalicia Diagnoses Atrial fibrillation with RVR I48.91 Pneumonia J18.9 Esophageal cancer C15.9
--- NOTE | 2021-04-10 17:37 | PC.NURSE ---
Shift Note Frequent safety and comfort rounds continue. Orders and/or nursing care completed as indicated. Patient monitored for response to intervention and treatment(s). Education provided includes NPO status, treatment/transfer plan and medications. Pt verbalizes understanding. Awaiting return call from Kim in [place] with room number for tx. VSS. Cardizem infusing at 10mg/h per orders and NS at 75ml/h. No other issues noted. Will continue to monitor.
--- NOTE | 2021-04-10 18:55 | PC.NURSE ---
Called report to Kim Zamudio. Spoke with Patti JIANG. Report given to Shilpa JIANG. All paperwork prepared. Transport arranged via [facility].
--- NOTE | 2021-04-10 19:38 | PC.NURSE ---
Patient left around 193 via ground transport to [facility].
== END 2021-04-10 19:30 | disposition short-term general hospital (02) | DRG 374 ==
LOC: ER 21:25 → CSU 23:15
PROVIDERS: Admitting Provider Student in an Organized Health Care Education/Training Program; Emergency Provider Emergency Medicine; Visit Provider Internal Medicine
DX: C15.9 Malignant neoplasm of esophagus, unspecified (principal); J69.0 Pneumonitis due to inhalation of food and vomit; J90 Pleural effusion, not elsewhere classified; I48.91 Unspecified atrial fibrillation; Z92.21 Personal history of antineoplastic chemotherapy; Z92.3 Personal history of irradiation; K13.79 Other lesions of oral mucosa; K14.8 Other diseases of tongue
CPT/HCPCS: 36415; 71045; 71275; 80053; 82607; 82746; 83605; 83880; 84484; 85025; 85610; 87040; 87070; 87205; 87426; 92610; 93005; 96365; 96366; 96367; 96372; 96375; 96376; 99291; 99292; J0456; J0696; J1650; J3490; J7030; J7040; J7050; Q9967; S0030